=== PATIENT | male | born 1945 | race Caucasian/White ===

== ENCOUNTER → 2019-09-25 | Outpatient (CLI) | payer OTHER | LOC: SJCVC 15:42 | PROVIDERS: ATTEND Internal Medicine | DX: R00.2 Palpitations (principal); M79.604 Pain in right leg; M79.605 Pain in left leg; I10 Essential (primary) hypertension; E78.5 Hyperlipidemia, unspecified; Z79.899 Other long term (current) drug therapy ==

== ENCOUNTER → 2019-10-12 | Outpatient (CLI) | payer OTHER | LOC: SJCVCIMAG 09:54 | PROVIDERS: ATTEND Internal Medicine | DX: I07.1 Rheumatic tricuspid insufficiency (principal) ==